=== PATIENT | female | born 1945 | race Caucasian/White ===

== ENCOUNTER 2024-09-01 07:40 | Outpatient (CLI) | payer MEDICARE, OTHER | END 2024-09-01 07:41 | disposition home or self-care (01) | LOC: CSHCP 07:40 | PROVIDERS: ATTEND Student in an Organized Health Care Education/Training Program | DX: R91.1 Solitary pulmonary nodule (principal); J44.9 Chronic obstructive pulmonary disease, unspecified | CPT/HCPCS: 94060; 94729; 94760 ==